=== PATIENT | female | born 1950 | race Two or more races ===

== ENCOUNTER 2021-12-23 08:00 | Day surgery (SDC) | payer OTHER | END 2021-12-23 14:35 | disposition home or self-care (01) | LOC: AMB-ENDOS 08:00 | PROVIDERS: ATTEND Colon & Rectal Surgery | DX: D12.4 Benign neoplasm of descending colon (principal); K57.30 Diverticulosis of large intestine without perforation or abscess without bleeding; Z20.822 Contact with and (suspected) exposure to COVID-19; I10 Essential (primary) hypertension ==